=== PATIENT | female | born 1985 ===

== ENCOUNTER 2018-07-07 04:06 | Inpatient (IN) | payer MEDICAID, OTHER ==
[2018-07-07 05:17] VITALS: BMI 30.5
[2018-07-07] MEDS ORDERED: Lactated Ringer's 1,000 ML IV ONE ×3 (05:26→07:26)
[2018-07-07] MEDS ORDERED: Oxytocin 30 UNIT in NS 500 ml 30 UNITS/500 ML BAG IV ONE ×2 (05:48→05:49)
[2018-07-07] MEDS ORDERED: OXYTOCIN/0.9 % NS 20 UNIT/1,000 ML BAG IV SCH (06:00)
[2018-07-07 06:01] LABS: BASO % 0.4 % (0.0-2.0); EOS # 0.1 K/uL (0.0-0.7); EOS % 0.6 % (0.0-4.0); HEMOGLOBIN 10.9 g/dL (12.0-16.0); LYMPH # 2.1 K/uL (1.0-4.3); LYMPH % 18.2 % (20.0-40.0); MEAN CORPUSCULAR HEMOGLOBIN 28.9 pg (27.0-31.0); MEAN PLATELET VOLUME 10.8 fl (7.2-11.7); MONO # 0.9 K/uL (0.0-0.8); MONO % 7.7 % (0.0-10.0); NEUT # 8.3 K/uL (1.8-7.0); NEUT % 73.1 % (50.0-75.0); NRBC % 0.1 % (0.0-0.0); RBC 3.77 Mil/uL (3.80-5.20); RED CELL DISTRIBUTION WIDTH 14.5 % (11.5-14.5); WHITE BLOOD COUNT 11.3 K/uL (4.8-10.8)
[2018-07-07] MEDS ORDERED: Fentanyl/Bupivacaine HCl 250 ML EPI ONE (06:22)
[2018-07-07 06:23] LABS: MEAN CELL VOLUME 87.8 fl (81.0-99.0)
--- NOTE | 2018-07-07 06:24 | OBHP ---
Datetime: 07/07/2018 06:24 Admit Comment, IP Provider: Pt is a 33 yo AMA F EGA of 38.2 wk JESSEE 07/19/18 based on LMP 10/12 confirmed with 13 wk U/S done 07/19/18. Pt is here for abdominal cramping lasts 30 seconds every 8 -10 mins, Also reports pink tinged toilet paper when wiping. Reports she was supposed to have a sched uled C section on Friday. Denies LOF. Reports good movement. Denies fever, chills, headaches, blurry vision, SOB, chest pain, dizziness, diarrhea, or constipation. All other systems reviewed and negative Provider: Dr. Handley PMHx: AMA Meds: PNV FMHx: Denies Allergies: PCN- rash SurgHx: C section 2015- due to being breech, belly button cyst 1986 SOCHx: Denies EtOH, tobacco, or drug use OBGYN: AMA, No complications with , Last pap NILM 09/19/16 No hx of STD's Labs: GBS neg, Hep B neg, TDAP 05/26/18 Assessment Pt is a 33 yo AMA F EGA of 38.2 wk JESSEE 07/19/18 based on LMP 10/12/17 here due to contractio ns and pink ting when wiping. Plan: -Admit to L _ D -Bimanual exam- cervix closed and long -IVF's 2 bags -Monitor VS -Monitor FHR tracing 120's, moderate variability, 15x15 accels, no decels Case reviewed and discussed with Dr. Rosemarie Pete PGY1 OB Hospitalist Addendum: Pt seen and examined by me. Agree w/ above. 33 yo at 38+2 wks w / painful ctxns since 2-3 am. Pt has a h/o previous section for breech presentation. Pt de clines . Will proceed w/ repeat section. Consents for procedure and possible transfusi on obtained. All questions answered. (ES) Datetime: 07/07/2018 04:59 IP Adm Impression: Term, intrauterine IP Admit Plan: Admit to unit; Initiate Section protocol Extremities - PN: Normal Abdomen - PN: Normal Lungs - PN: Normal Heart - PN: Normal HEENT - PN: Normal General - PN: Normal FHR - Baseline A Provider: 120 Comments, ACOG Physical Exam: GEN: NAD HEENT: NCAT, EOMI RESP: CTA, no wheezes, rales, or rhonchi, CV: RRR, No m/r/g ABD: Gravid, Soft, nontender to palpation LE: no edema Bimanual- Cervix thick and closed Monitor FHR tracing 120's, moderate variability, 15x15 accels, no decels IP Hx Assessment: The History has been Reviewed and is Current EGA AdmitDate IP: 38.2 Vital Signs Provider: Reviewed Vital Signs Provider Details: HR 113 IP Chief Complaint: Uterine contractions; Vaginal bleeding NICHD Variability Prov Fetus A: Moderate 6-25bpm NICHD Accel Fetus A IP Provider: 15X15 FHR Category Provider Fetus A: Category I NICHD Decel Fetus A IP Provider: None Dilatation, Provider: 0 Effacement, Provider: 0 Station, Provider: -3 Genitourinary Exam: Normal
--- NOTE | 2018-07-07 06:27 | OBADHP ---
Datetime: 07/07/2018 06:24 Admit Comment, IP Provider: Pt is a 33 yo AMA F EGA of 38.2 wk JESSEE 07/19/18 based on LMP 10/12 confirmed with 13 wk U/S done 07/19/18. Pt is here for abdominal cramping lasts 30 seconds every 8 -10 mins, Also reports pink tinged toilet paper when wiping. Reports she was supposed to have a sched uled C section on Friday. Denies LOF. Reports good movement. Denies fever, chills, headaches, blurry vision, SOB, chest pain, dizziness, diarrhea, or constipation. All other systems reviewed and negative Provider: Dr. Handley PMHx: AMA Meds: PNV FMHx: Denies Allergies: PCN- rash SurgHx: C section 2015- due to being breech, belly button cyst 1986 SOCHx: Denies EtOH, tobacco, or drug use OBGYN: AMA, No complications with , Last pap NILM 09/19/16 No hx of STD's Labs: GBS neg, Hep B neg, TDAP 05/26/18 Assessment Pt is a 33 yo AMA F EGA of 38.2 wk JESSEE 07/19/18 based on LMP 10/12/17 here due to contractio ns and pink ting when wiping. Plan: -Admit to L _ D -Bimanual exam- cervix closed and long -IVF's 2 bags -Monitor VS -Monitor FHR tracing 120's, moderate variability, 15x15 accels, no decels Case reviewed and discussed with Dr. Rosemarie Pete PGY1 OB Hospitalist Addendum: Pt seen and examined by me. Agree w/ above. 33 yo at 38+2 wks w / painful ctxns since 2-3 am. Pt has a h/o previous section for breech presentation. Pt de clines . Will proceed w/ repeat section. Consents for procedure and possible transfusi on obtained. All questions answered. (ES) Extremities - PN: Normal Abdomen - PN: Normal Lungs - PN: Normal Heart - PN: Normal General - PN: Normal FHR - Baseline A Provider: 120's Contraction Comments Provider: irregular Comments, ACOG Physical Exam: GEN: NAD HEENT: NCAT, EOMI RESP: CTA, no wheezes, rales, or rhonchi, CV: RRR, No m/r/g ABD: Gravid, Soft, nontender to palpation LE: no edema Bimanual- Cervix thick and closed Monitor FHR tracing 120's, moderate variability, 15x15 accels, no decels Vital Signs Provider: Reviewed IP Chief Complaint: Uterine contractions; Vaginal bleeding NICHD Variability Prov Fetus A: Moderate 6-25bpm NICHD Accel Fetus A IP Provider: [id number] FHR Category Provider Fetus A: Category I NICHD Decel Fetus A IP Provider: None Dilatation, Provider: 0 Effacement, Provider: 0 Station, Provider: -3 Genitourinary Exam: Normal EGA AdmitDate IP: 38.2 IP Adm Impression: Term, intrauterine IP Admit Plan: Admit to unit; Initiate Section protocol Datetime: 07/07/2018 04:59 HEENT - PN: Normal IP Hx Assessment: The History has been Reviewed and is Current Vital Signs Provider Details: HR 113
[2018-07-07] MEDS ORDERED: Clindamycin 300 mg/2 ml Inj IVPB ONE (07:30)
[2018-07-07] MEDS ORDERED: Morphine 5 mg/10 ml preservative-free Inj(Duramorph) ONE (08:44)
[2018-07-07] MEDS ORDERED: Oxycodone/Acetaminophen 5/325 mg Tab PO PRN ×3 (10:10→10:31)
--- NOTE | 2018-07-07 10:47 | PCM.SURG1 ---
Surgeon's Initial Post Op Note - Surgeon's Notes Surgeon: Dr Becker Press Manager: Dr Carrillo and Dr Lane Type of Anesthesia: Spinal Pre-Operative Diagnosis: IUP at 38weeks with a prior scetion, in active labor,. declines Operative Findings: Live female baby BW of 4405gms and scores of 9 and 9 delivered in cephalic presentation and clear amniotic fluid.Placenta fundal. Uterus appears normal but had a solitary 2.0cm subserosal fundal fibroid nodule. Both bilateral ovaries and fallopin tubes appeared normal. IVF intake- 1900mls. Urine Output - 100mls. EBL- 500mls. Post-Operative Diagnosis: Same as preop Diagnosis Operation Performed: Repeat low Transverse Section Specimen/Specimens Removed: none Estimated Blood Loss: EBL {In ML}: 500 Blood Products Given: N/A Post-Op Condition: Good Date of Surgery/Procedure: 07/07/18 Time of Surgery/Procedure: 10:49
[2018-07-07] MEDS ORDERED: DiphenhydrAMINE 50 mg/ml Inj IVP STA (13:47)
[2018-07-07] MEDS: Lactated Ringer's 1,000 ML IV SCH (20:40)
--- NOTE | 2018-07-07 23:34 | OP ---
PROCEDURE DATE: 07/07/2018 PREOPERATIVE DIAGNOSIS: Intrauterine at 39 weeks with a prior section in active labor. POSTOPERATIVE DIAGNOSIS: Intrauterine at 39 weeks with a prior section in active labor. PROCEDURE DONE: Repeat low-transverse section performed on 07/07/2018. SURGEON: Mook Becker MD ASSISTANTS: Dr. Carrillo and Dr. Zheng Phelan( Resident). Assistance for this procedure was needed for exposure of tissues and help in the delivery of the baby. The assistants remained with the surgery throughout its entire length. TYPE OF ANESTHESIA: Spinal. ANESTHESIA ADMINISTERED BY: Vi Bush MD FINDINGS: Live female baby with weight of 4405 g and scores of 9 in the first and fifth minutes respectively. Baby was delivered in cephalic presentation in the left occipitoanterior positioning. Amniotic fluid was clear. The placenta was fundal. The uterus appeared normal but had a solitary 2cm subserosal fundal fibroid. Both bilateral ovaries and fallopian tubes appeared normal. INTRAVENOUS FLUID INTAKE: 1900 mL. URINE OUTPUT: 100 mL. ESTIMATED BLOOD LOSS: 500 mL. COMPLICATIONS: There were no complications. DESCRIPTION OF PROCEDURE: After obtaining informed consent, the patient was sent to the OR with IV running. The patient was sat on the OR table and after adequate spinal anesthesia was placed in a supine position with a left lateral tilt. The patient was then prepped and draped in the usual sterile fashion. The old incisional Pfannenstiel scar was excised using a scalpel and Allis forceps. Once the scar had been excised, the incision was extended down through the subcutaneous tissues using a Bovie device till the rectus fascia was identified. A transverse incision was made in the transverse fascia, and this was extended to both sides by means of Chand scissors and pickup forceps. The rectus fascia was then lifted off the rectus muscles both superiorly and inferiorly by means of blunt dissection and sharp dissection. The rectus muscles were in the midline to explore the peritoneum which was tented between two Linnette clamps and sharply entered both superiorly and inferiorly with good visualization of the bladder. Once the abdominal cavity was entered, the vesicouterine fold of the peritoneum was identified, incised in a transverse fashion and retracted inferiorly to explore the lower uterine segment. A low-transverse incision was made using the scalpel, and this incision was sent through the myometrial layer, so that the amniotic membrane was identified. The incision was extended to both sides by means of bandage scissors. The baby which was positioned in the left occipitoanterior position was delivered and cried immediately after . The mouth and nostrils were bulb suctioned, and the three-vessel cord was clamped and cut. The baby was given to the team. Umbilical cord blood was routinely collected, and the placenta was expressed from the uterine cavity. The uterus was then brought out through the incision, and the uterine cavity was cleaned of all debris using dry laparotomy pads. The uterine incision was then closed in two layers using Vicryl #0, the first layer in a running locked fashion and the second layer in a running fashion and imbricating the first layer. This was conducted until hemostasis was achieved. The anterior and posterior spaces around the uterus were irrigated with sterile water. Once hemostasis had been noted, the uterus was returned into the abdominal cavity. Anterior abdominal wall was then closed in layers using Vicryl #2-0 for peritoneum and the rectus muscles. The rectus fascia was reapproximated using Vicryl #0. The subcutaneous tissue was brought together using #2-0 plain catgut. The skin was closed in a subcuticular fashion using #3-0 Vicryl. All counts of instruments, laparotomy pads, and needles used were correct x3, and the patient was sent to the recovery room awake and in stable condition. Mook Becker MD HOWIE
[2018-07-08] MEDS: Lactated Ringer's 1,000 ML IV SCH ×2 (04:17→12:15)
[2018-07-08] MEDS: Oxycodone/Acetaminophen 5/325 mg Tab PO PRN ×2 (06:08→20:19)
[2018-07-08 06:21] LABS: HEMOGLOBIN 9.8 g/dL (12.0-16.0); MEAN CELL VOLUME 87.5 fl (81.0-99.0); MEAN CORPUSCULAR HEMOGLOBIN 29.4 pg (27.0-31.0); MEAN CORPUSCULAR HGB CONC 33.7 g/dL (33.0-37.0); RBC 3.32 Mil/uL (3.80-5.20); WHITE BLOOD COUNT 13.8 K/uL (4.8-10.8)
[2018-07-08] MEDS: Multivitamin With Minerals Tab PO SCH (08:58)
[2018-07-08] MEDS ORDERED: Multivitamin With Minerals Tab PO SCH (09:00)
[2018-07-09] MEDS: Multivitamin With Minerals Tab PO SCH (08:32)
[2018-07-09] MEDS ORDERED: Influenza Vaccine 60 mcg/0.5 mL SYR (4YR UP) IM ONE (09:00)
[2018-07-09] MEDS ORDERED: Influenza Vaccine (5 YR UP)/PF 60 MCG/0.5 ML SYR IM ONE (10:00)
--- NOTE | 2018-07-09 11:08 | OBDS ---
[facility]ERSONNEL Delivery Doctor: Dr. Becker Child Welfare Manager: Karen Rasmussen RN Anesthesiologist: Dr. Bush Resident: Dr. Lane MATERNAL INFORMATION Delivery Anesthesia: Spinal Medications in Delivery: Pitocin 30 mu/500 ml, Pitocin 20 mu/1000 mL Estimated Blood Loss (ml): 800 Placenta Cultured: No Maternal Complications: None Provider Comments: Uncomplicated repeat cesrean Section with delivery of a viable female , BW of 440 5g and scores of 9 and 9. Delivered in the MARILUZ positioning fundal placenta and clear amniotic f luid. Uterine closure in 2 layers with vicryl 0. EBL- 500mls Patient tolerated the procedure well. LABOR SUMMARY EDC: 07/19/2018 00:00 No. Babies in Womb: 1 Attempted: No Labor Anesthesia: None LABOR INFORMATION Reason for Induction: Not Applicable Oxytocin: N/A Group B Beta Strep: Negative Antibiotics # of Doses: 2 Antibiotics Time of Last Dose: 0900 Steroids Given: None Reason Steroids Not Administered: Not Applicable MEMBRANES Membranes Rupture Method: Artificial Rupture of Membranes: 07/07/2018 09:16 Length of Rupture (hrs): 0.00 Amniotic Fluid Color: Clear Amniotic Fluid Amount: Moderate Amniotic Fluid Odor: None STAGES OF LABOR Stage 3 hrs: 0 Stage 3 min: 1 CSECTION DELIVERY Primary Indication: Repeat Elective Secondary Indication: Repeat Elective CSection Urgency: Elective CSection Incidence: Repeat Labor: No Labor Elective: Elective CSection Incision: Lower Uterine Transverse BABY A INFORMATION Infant Delivery Date/Time: 07/07/2018 09:16 Method of Delivery: Born in Route : No : N/A Forceps: N/A Vacuum Extraction: N/A Shoulder Dystocia : No SHOULDER DYSTOCIA BABY A Delivery Date/Time: 07/07/2018 09:16 PRESENTATION/POSITION BABY A Presentation: Cephalic Cephalic Presentation: Vertex Breech Presentation: N/A PLACENTA INFORMATION BABY A Placenta Delivery Time : 07/07/2018 09:17 Placenta Method of Delivery: Expressed Placenta Status: Delivered SCORES BABY A Heart Rate 1 min: >100 bpm Resp Effort 1 min: Good Cry Reflex Irritability 1 min: Cough or Sneeze or Pulls Away Muscle Tone 1 min: Active Motion Color 1 min: Body [place], Extremities Blue Resuscitation Effort 1 min: N/A SCORE 1 MIN: 9 Heart Rate 5 min: >100 bpm Resp Effort 5 min: Good Cry Reflex Irritability 5 min: Cough or Sneeze or Pulls Away Muscle Tone 5 min: Active Motion Color 5 min: Body [place], Extremities Blue Resuscitation Effort 5 min: N/A SCORE 5 MIN: 9 INFANT INFORMATION BABY A Gestational Age at Delivery: 38.2 Gestational Status: Term Outcome : Liveborn Condition : Stable Sex: Female IDENTIFICATION/MEDS BABY A ID Band Number: [id number] ID Band Location: Left Leg; Left Arm WEIGHT/LENGTH BABY A Birthweight (gms): 4405 Infant Weight (lb): 9 Infant Weight (oz): 11 CORD INFORMATION BABY A No. Cord Vessels: 3 Nuchal Cord : N/A Cord Blood Taken: Yes Infant Suction: Mouth; Nose
--- NOTE | 2018-07-09 15:32 | OBPPN ---
Datetime: 07/08/2018 10:59 PP Pain Prov: Within normal limits PP Nausea Prov: Denies PP Flatus Prov: Yes PP Breasts Prov: Normal PP Heart Prov: Normal PP Lungs Prov: Normal PP Abdomen/Uterus Prov: Normal PP Lochia Prov: Normal PP Vulva/Perineum Prov: Normal PP CVA Tenderness Prov: Normal PP Extremities Prov: Normal PP Impression Prov: Normal progression PP Plan Prov: Continue present management PP Progress Note Prov: S/P Repeat Section, Clinically Stable. Plan: Continue postparum care. Vital Signs Provider PP: Reviewed
[2018-07-09] MEDS: Oxycodone/Acetaminophen 5/325 mg Tab PO PRN (21:39)
[2018-07-10] MEDS: Oxycodone/Acetaminophen 5/325 mg Tab PO PRN (05:46)
[2018-07-10] MEDS: Multivitamin With Minerals Tab PO SCH (08:51)
--- NOTE | 2018-07-10 09:08 | OBPPN ---
Datetime: 07/09/2018 09:04 PP Pain Prov: Within normal limits PP Nausea Prov: Denies PP Flatus Prov: Yes PP BM Prov: No PP Breasts Prov: Normal PP Heart Prov: Normal PP Lungs Prov: Normal PP Abdomen/Uterus Prov: Normal PP Lochia Prov: Normal PP Vulva/Perineum Prov: Normal PP CVA Tenderness Prov: Normal PP Extremities Prov: Normal PP C/S Incision Prov: Normal PP Progress Prov: Normal PP Comments Phys Exam Prov: Abdomen soft, nontender, nondistended Incision clean, dry, intact Uterus firm, below umbilicus No deep calf tenderness bilaterally PP Impression Prov: Normal progression PP Plan Prov: Continue present management PP Progress Note Prov: Status post , patient recovering well Pain control Regular diet Patient out of bed and ambulating Continue current management IP PP Procedures: None Vital Signs Provider PP: Reviewed; Within Normal Limits
--- NOTE | 2018-07-10 12:12 | OBPPN ---
Datetime: 07/10/2018 12:10 PP Pain Prov: Within normal limits PP Nausea Prov: Denies PP Flatus Prov: Yes PP Breasts Prov: Not Done PP Heart Prov: Normal PP Lungs Prov: Normal PP Abdomen/Uterus Prov: Normal PP Lochia Prov: Not Done PP Vulva/Perineum Prov: Not Done PP CVA Tenderness Prov: Normal PP Extremities Prov: Normal PP C/S Incision Prov: Normal PP Impression Prov: Normal progression PP Plan Prov: Discharge PP Progress Note Prov: Patient doing well ambulating tolerating diet pain well controlled Vital signs stable afebrile Uterus firm below the umbilicus Incision clean dry intact Postoperative day #3 Patient cleared for discharge Prescriptions provided No heavy lifting Nothing per vagina Vital Signs Provider PP: Reviewed
--- NOTE | 2018-07-10 12:14 | OBDCSUM ---
Datetime: 07/10/2018 12:00 Discharged to, Provider: Home Follow up at, Provider: Tanisha Disch Instr Activity: Normal activity Disch Instr Diet: Regular Discharge Instructions, Provider: Routine instructions given Discharge Diagnosis, Provider: Term Delivered Discharge Time: 07/10/2018 12:00 Follow up in weeks, Provider: 1 Week Disch Referrals: None Contraception discussed, Prov: Yes Disch Activity Restrictions: No sexual activity; Nothing in vagina - [place], tampons, douche Contraception after Delivery: Undecided
[2018-07-10 19:01] VITALS: BP 120/68; PULSE 112; RESP 20; TEMP 98.1; O2SAT 95
== END 2018-07-10 13:40 | disposition home or self-care (01) | DRG 371 ==
LOC: H.EROB2 04:06 → H.L&D 05:25 → H.OB/GYN 12:30
PROVIDERS: ADMIT Obstetrics & Gynecology; ATTEND Obstetrics & Gynecology
PROC: 10D00Z1 Extraction of Products of Conception, Low, Open Approach (ICD-10-PCS; principal; 2018-07-07)
PROC: 4A1HXCZ Monitoring of Products of Conception, Cardiac Rate, External Approach (ICD-10-PCS; 2018-07-07)
DX: O34.211 Maternal care for low transverse scar from previous cesarean delivery (principal); N85.8 Other specified noninflammatory disorders of uterus; Z37.0 Single live birth; Z3A.38 38 weeks gestation of pregnancy; D25.2 Subserosal leiomyoma of uterus; O34.13 Maternal care for benign tumor of corpus uteri, third trimester